=== PATIENT | female | born 1965 | race Hispanic/Latino ===

== ENCOUNTER → 2017-08-24 | Outpatient (CLI) | payer MEDICARE ==
[~2017-08-24] MED LIST: ALPR1TAB7 PO; CETI10TA57 PO; CLOP75TA32 PO; FLUT8AER2 IH; FURO20TA4 PO; INSU10VI3 SQ; JANUVIA PO; LISI-617 PO; MIRT30TA6 PO; MONT10TA24 PO; NIAC-8 PO; OMEP20CA10 PO; PANT20TA12 PO; PRAV20TA4 PO; PREG150C PO; TOPI25TA48 PO; TOPI50TA24 PO
== END | disposition home or self-care (01) ==
LOC: SHCH 09:52
PROVIDERS: ATTEND Internal Medicine Cardiovascular Disease
DX: I87.2 Venous insufficiency (chronic) (peripheral) (principal)
CPT/HCPCS: 93970

== ENCOUNTER 2018-10-26 09:51 | Day surgery (SDC) | payer MEDICARE ==
[2018-10-25 14:49] VITALS: BP 105/50
[~2018-10-26] VITALS: Ht 154.9 cm; Wt 97.1 kg
[2018-10-26] VITALS (13 sets, daily range): BP systolic 102–151; BP diastolic 59–93
[2018-10-26] MEDS: CEFAZOLIN SODIUM 1 GM VIAL IVP SCH ×2 (06:00→14:40)
[~2018-10-26 09:51] MED LIST changes: +ALBUHFA IH; -ALPR1TAB7 PO; +ASCO500C18 PO; +ASPI-988 PO; +CALC-190 PO; +CHOL100040 PO; +CICLOPIROX OLAMINE TP; +CLON0.5T12 PO; +FEXO-59 PO; +FLUC100T8 PO; +FLUT16H NASAL; -FLUT8AER2 IH; -JANUVIA PO; -LISI-617 PO; +LOSA25TA2 PO; +NITR0.4T50 SL; +OMEG100033 PO; -PANT20TA12 PO; +SITA100T12 PO; -TOPI25TA48 PO; +TRAM50TA4 PO; +UMEC1DIS IH; +VITA400C73 PO; +[UNRECOGNIZED DRUG - CODE] OP
[2018-10-26] MEDS ORDERED: SODIUM CHLORIDE 0.9% 1000ML 1,000 ML IV ONE (10:27)
--- NOTE | 2018-10-26 11:35 | NUR ---
PUPILS PT HAS BILATERAL lens implants Addendum: 10/26/18 at 1140 by MOHAMUD SHEPPARD RN RN Amended: Links added.
[2018-10-26] MEDS ORDERED: EPINEPHRINE 1 MG/ML 30ML VIAL IJ ONE (14:03)
[2018-10-26] MEDS ORDERED: ONDANSETRON HCL 4 MG/2 ML VIAL ONE (14:20)
[2018-10-26] MEDS ORDERED: LIDOCAINE PF 2% 5ML ABBOJECT ONE (14:20)
[2018-10-26] MEDS ORDERED: MIDAZOLAM HCL 1 MG/ML 2ML VIAL ONE (14:23)
[2018-10-26] MEDS ORDERED: DEXAMETHASONE SOD PHOSPHATE 10MG/ML 1ML VIAL ONE (14:23)
[2018-10-26] MEDS ORDERED: FENTANYL CITRATE PF 50 MCG/1 ML 2ML VIAL ONE (14:23)
[2018-10-26] MEDS ORDERED: PROPOFOL 10 MG/ML 20ML VIAL IV ONE (14:23)
[2018-10-26] MEDS ORDERED: ROCURONIUM 10MG/1ML SYR 10 MG/ML ML ONE ×2 (14:24→15:23)
[2018-10-26] MEDS ORDERED: ROPIVACAINE 0.5% 5MG/ML 30ML IJ ONE (14:32)
[2018-10-26] MEDS ORDERED: EPHEDRINE SULFATE 50 MG/ML AMPULE ONE (14:40)
[2018-10-26] MEDS ORDERED: GLYCOPYRROLATE 1 MG/5 ML SYRINGE ONE (16:11)
[2018-10-26] MEDS ORDERED: NEOSTIGMINE 5MG/5ML SYR IV ONE (16:12)
[2018-10-26] MEDS ORDERED: HYDR-4457 PO (16:33)
[2018-10-26] MEDS ORDERED: CEPH-578 PO (16:33)
[2018-10-26] MEDS ORDERED: IPRATROPIUM/ALBUTEROL SULFATE 3 ML SOLUTION IH ONE (16:55)
--- NOTE | 2018-10-26 16:58 | NUR ---
ASSESSMENT PT COUGHING. STATES HAS A CPAP FOR NIGHT USE. WHEEZING HEARD TO BASES OF LUNGS. DUO NEB ADMINISTERED BY RT. WILL MONITOR.
== END 2018-10-26 18:10 | disposition home or self-care (01) ==
LOC: DAH 09:51
PROVIDERS: ATTEND Orthopaedic Surgery
DX: S43.492A Other sprain of left shoulder joint, initial encounter (principal); X58.XXXA Exposure to other specified factors, initial encounter; Y93.9 Activity, unspecified; Y92.89 Other specified places as the place of occurrence of the external cause; Y99.9 Unspecified external cause status; Z86.73 Personal history of transient ischemic attack (TIA), and cerebral infarction without residual deficits; I11.0 Hypertensive heart disease with heart failure; I50.9 Heart failure, unspecified; E11.9 Type 2 diabetes mellitus without complications; J44.9 Chronic obstructive pulmonary disease, unspecified; Z98.890 Other specified postprocedural states; Z79.899 Other long term (current) drug therapy; Z82.49 Family history of ischemic heart disease and other diseases of the circulatory system; Z83.3 Family history of diabetes mellitus; Z87.891 Personal history of nicotine dependence; G47.33 Obstructive sleep apnea (adult) (pediatric); Z68.41 Body mass index [BMI] 40.0-44.9, adult; E66.9 Obesity, unspecified
CPT/HCPCS: 29822; 82948 ×2; 94640; A4510; A4565; A4649 ×3; A4930 ×2; A6204; G0168; J0171; J0690 ×2; J1100; J2001; J2250; J2405; J2704; J2710; J2795; J3010; J3490 ×2; J7030 ×2

== ENCOUNTER → 2018-12-19 | Outpatient (CLI) | payer MEDICARE ==
[~2018-12-19] MED LIST changes: +CEPH-578 PO; +HYDR-4457 PO; +OMEP-50 PO; -OMEP20CA10 PO
== END | disposition home or self-care (01) ==
LOC: SHCH 08:13
PROVIDERS: ATTEND Internal Medicine Cardiovascular Disease
DX: I11.9 Hypertensive heart disease without heart failure (principal)
CPT/HCPCS: 93306

== ENCOUNTER → 2019-02-11 | Outpatient (CLI) | payer MEDICARE, MEDICAID | END | disposition home or self-care (01) | LOC: SHCH 14:04 | PROVIDERS: ATTEND Internal Medicine Cardiovascular Disease | DX: I82.811 Embolism and thrombosis of superficial veins of right lower extremity (principal) | CPT/HCPCS: 93971 ==

== ENCOUNTER 2019-03-17 17:09 | Emergency (ER) | payer MEDICARE ==
[~2019-03-17 17:09] MED LIST changes: -CLON0.5T12 PO; +CLON0.5T4 PO
[2019-03-17] MEDS ORDERED: KETOROLAC TROMETHAMINE 30MG/ML ONE (17:42)
== END 2019-03-17 19:40 | disposition home or self-care (01) ==
LOC: EDH 17:09
DX: L03.115 Cellulitis of right lower limb (principal); E11.9 Type 2 diabetes mellitus without complications; I73.9 Peripheral vascular disease, unspecified; I10 Essential (primary) hypertension; F32.9 Major depressive disorder, single episode, unspecified; F41.9 Anxiety disorder, unspecified; Z90.49 Acquired absence of other specified parts of digestive tract; Z90.710 Acquired absence of both cervix and uterus; Z98.890 Other specified postprocedural states; Z88.8 Allergy status to other drugs, medicaments and biological substances; Z72.0 Tobacco use
CPT/HCPCS: 93971; 96372; 99284; J1885

== ENCOUNTER 2022-04-22 06:03 | Day surgery (SDC) | payer MEDICARE ==
[2022-04-20 09:55] LABS: BASOPHILS % (AUTO) 0.7 % (0.0-5.0); EOSINOPHILS % (AUTO) 0.9 % (0.0-8.0); HEMATOCRIT 40.7 % (36-48); LYMPHOCYTES % (AUTO) 32.7 % (21.0-51.0); MEAN CORPUSCULAR HEMOGLOBIN 30.9 pg (27.0-33.0); MEAN CORPUSCULAR HGB CONC 33.4 g/dL (32.0-36.0); MEAN CORPUSCULAR VOLUME 92.5 fL (79-99); MONOCYTES % (AUTO) 5.2 % (3.0-13.0); NEUTROPHILS % (AUTO) 60.2 % (40.0-77.0); PLATELET COUNT (AUTO) 212 K/uL (130-400); RED CELL DISTRIBUTION WIDTH 12.2 % (11.0-15.5); WHITE BLOOD COUNT (AUTO) 8.9 K/uL (4.8-10.8)
[2022-04-20 10:08] LABS: ALBUMIN 3.9 g/dL (3.5-5.0); CREATININE 0.9 mg/dL (0.5-1.5); CRP QUANTITATIVE 2.8 mg/L (0.00-9.0); POTASSIUM 4.4 mmol/L (3.5-5.1)
[2022-04-21 11:24] VITALS: BP 109/61
[2022-04-22] VITALS (18 sets, daily range): BP systolic 95–129; BP diastolic 42–77
[~2022-04-22] VITALS: Ht 152.4 cm; Wt 81.6 kg
[~2022-04-22 06:03] MED LIST changes: -ASPI-988 PO; +ASPI1TAB7 PO; +BUPIVACAINE/PF 0.5% 10ML VIAL ONE; +CEFAZOLIN SODIUM 1 GM VIAL IVPB SCH; +FEXO-263 PO; -FEXO-59 PO; +FLUC100T12 PO; -FLUC100T8 PO; +MIRT-93 PO; -MIRT30TA6 PO; +MONT-39 PO; -MONT10TA24 PO; -OMEP-50 PO; +OMEP20CA12 PO
[2022-04-22] MEDS ORDERED: 0.9%NACL 1000ML 1,000 ML IV ONE (06:25)
[2022-04-22] MEDS ORDERED: IPRATROPIUM/ALBUTEROL SULFATE 3 ML SOLUTION IH ONE (06:55)
[2022-04-22] MEDS ORDERED: PROPOFOL 10 MG/ML 20ML VIAL IV ONE (07:09)
[2022-04-22] MEDS ORDERED: LIDOCAINE HCL-MPF 1% 5ML AMP IJ ONE (07:09)
[2022-04-22] MEDS ORDERED: FENTANYL CITRATE PF 50 MCG/1 ML 2ML VIAL ONE ×2 (07:10→07:55)
[2022-04-22] MEDS ORDERED: DONE5TAB33 PO (07:18)
[2022-04-22] MEDS ORDERED: RISP0.5T66 PO (07:18)
[2022-04-22] MEDS ORDERED: AEC81 PO (07:18)
[2022-04-22] MEDS ORDERED: EPHEDRINE SULFATE 50 MG/ML AMPULE ONE (07:19)
[2022-04-22] MEDS ORDERED: ISOS30TA92 PO (07:22)
[2022-04-22] MEDS ORDERED: FURO-152 PO (07:22)
[2022-04-22] MEDS ORDERED: BUDE10.2 IH (07:25)
[2022-04-22] MEDS ORDERED: FLUT1DIS4 IH (07:25)
[2022-04-22] MEDS ORDERED: CYAN200018 PO (07:25)
[2022-04-22] MEDS ORDERED: ONDANSETRON 4MG INJ ONE (07:26)
[2022-04-22] MEDS ORDERED: PHENYLEPHRINE HCL 10 MG/ML 1ML VIAL IV ONE (07:27)
[2022-04-22] MEDS ORDERED: TRAM50TA4 PO (08:20)
[2022-04-22] MEDS ORDERED: MORPHINE 4 MG SYG ONE (08:41)
== END 2022-04-22 10:10 | disposition home or self-care (01) ==
LOC: DAH 06:03
PROVIDERS: ATTEND Student in an Organized Health Care Education/Training Program
DX: M22.42 Chondromalacia patellae, left knee (principal); Z20.822 Contact with and (suspected) exposure to COVID-19; M79.4 Hypertrophy of (infrapatellar) fat pad; M25.562 Pain in left knee; G89.29 Other chronic pain; M23.92 Unspecified internal derangement of left knee; M25.862 Other specified joint disorders, left knee; M19.012 Primary osteoarthritis, left shoulder; I11.0 Hypertensive heart disease with heart failure; I50.9 Heart failure, unspecified; J44.9 Chronic obstructive pulmonary disease, unspecified; E11.9 Type 2 diabetes mellitus without complications; E78.5 Hyperlipidemia, unspecified; E66.01 Morbid (severe) obesity due to excess calories; F17.200 Nicotine dependence, unspecified, uncomplicated; K21.9 Gastro-esophageal reflux disease without esophagitis; Z98.890 Other specified postprocedural states; Z79.899 Other long term (current) drug therapy; Z79.82 Long term (current) use of aspirin; Z86.73 Personal history of transient ischemic attack (TIA), and cerebral infarction without residual deficits; Z90.710 Acquired absence of both cervix and uterus; Z98.49 Cataract extraction status, unspecified eye; Z68.35 Body mass index [BMI] 35.0-35.9, adult
CPT/HCPCS: 82040; 80048; 85025; 84134; 86140; 87426; 36415; 29877; 82948 ×2; 94640; A4663; A4649; J3010 ×2; J0690; J7030; J3490 ×3; J2704; J2405; J2270; J2370; A6223; A5120; A4215; A4223; A4222; A4221; A6450